=== PATIENT | male | born 1945 | race Asian ===

== ENCOUNTER 2022-09-06 16:25 | Inpatient (IN) | payer BC, OTHER ==
[~2022-09-06] VITALS: Ht 167.6 cm; Wt 68.0 kg
[2022-09-06 16:41] VITALS: BP 122/74
--- NOTE | 2022-09-06 17:10 | NUR ---
@[id number] RN CALLED PT IN BED TEN CAME IN FROM [facility] RA SATING 82% PT IS ON NRM SATING 95%. [facility] STATED PT TESTED POS. FOR COVID TODAY AND WAS DESATURATING. PT HAS NO SIGNS OF DISTRESS PLACED ON 5L GREEN HIGH FLOW BUBBLER. PT IS SATING 94%.
--- NOTE | 2022-09-06 17:10 | NUR ---
@[id number] RT CALLED ER TO LET DR KNOW ABG RESULTS ARE INPUTED.
[2022-09-06 17:14] LABS: BASOPHILS % (AUTO) 0.5 % (0.0-2.0); LYMPHOCYTES # (AUTO) 0.3 K/uL (2.0-11.5); LYMPHOCYTES % (AUTO) 8.6 % (20.5-51.1); MEAN CORPUSCULAR HEMOGLOBIN 32 pg (27-31); MEAN CORPUSCULAR HGB CONC 34 g/dL (33-37); MEAN CORPUSCULAR VOLUME 94.2 fL (80-94); MONOCYTES # (AUTO) 0.2 K/uL (0.8-1.0); MONOCYTES % (AUTO) 6.9 % (1.7-9.3); NEUTROPHILS # (AUTO) 2.7 K/uL (1.8-7.7); PLATELET COUNT (AUTO) 85 K/uL (140-450); RED BLOOD CELL COUNT(AUTO) 4.35 MIL/uL (4.20-6.10); RED CELL DISTRIBUTION WIDTH 12.7 % (11.6-13.7); WHITE BLOOD COUNT (AUTO) 3.2 K/uL (4.8-10.8)
--- NOTE | 2022-09-06 17:31 | NUR ---
C/O SOB, SATTING AT 81% RA IN PCP OFFICE, PER EMS PT TESTED POSITIVE FOR COVID TODAY, PLACED ON NRB 10L, ON 95%. DENIES ANY FEVERS, RUNNY NOSE, BLS CLEAR NKA PMH: HTN
[2022-09-06 17:55] LABS: ALBUMIN 3.9 g/dL (3.4-5.0); ANION GAP 16.1 (8-16); ASPARTATE AMINOTRANSFERASE 30 U/L (15-37); CARBON DIOXIDE 23.8 mmol/L (21-32); CHLORIDE 102 mmol/L (98-107); CREATININE 1.5 mg/dL (0.6-1.3); GLUCOSE 132 mg/dL (74-106); POTASSIUM 3.9 mmol/L (3.5-5.1); SODIUM SERUM 138 mmol/L (136-145); TOTAL BILIRUBIN 0.6 mg/dL (0.0-1.0); UREA NITROGEN, BLOOD 19 mg/dL (7-18)
[2022-09-06] MEDS ORDERED: ATEN50TA2 PO (18:17)
[2022-09-06] MEDS ORDERED: ATOR20TA40 PO (18:17)
[2022-09-06] MEDS ORDERED: TENO25TA PO (18:17)
[2022-09-06] MEDS ORDERED: TELM40TA PO (18:17)
--- NOTE | 2022-09-06 18:54 | NUR ---
PT ATTEMPTED TO WALK, ROOM AIR SATTING 89% AMBULATORY
[2022-09-06] MEDS ORDERED: AZITHROMYCIN 500 MG in DEXTROSE 5% 250 ML IV ONE (19:00)
[2022-09-06] MEDS ORDERED: cefTRIAXone 1,000 MG VIAL ONE (19:04)
--- NOTE | 2022-09-06 19:04 | NUR ---
LAB AT BEDSIDE
[2022-09-06] MEDS ORDERED: DEXAMETHASONE 10 MG/ML VIAL IVP ONE (19:05)
--- NOTE | 2022-09-06 19:20 | NUR ---
Pt report given to ANNABEL RN. Transfer of care at this time.
[2022-09-06] MEDS ORDERED: ACETAMINOPHEN EXTRA STRENGTH 500 MG TAB PO ONE (19:30)
[2022-09-06] MEDS ORDERED: AZITHROMYCIN 500 MG INJ VIAL IV ONE ×2 (19:38→20:46)
--- NOTE | 2022-09-06 19:59 | NUR ---
Novel swab done and given to lab animal technologist.
[2022-09-06] MEDS ORDERED: ALBUTEROL SULFATE/IPRATROPIU 3 ML SOL IH ONE (20:15)
--- NOTE | 2022-09-06 20:40 | NUR ---
Respiratory Therapist at bedside for respiratory intervention.
--- NOTE | 2022-09-06 20:44 | NUR ---
PER ORDER RECEIVED AT 2011, DUONEB ADMINISTERED, PT TOLERATED WELL. PT SATURATIONS MAINTAINED ABOVE 97% POST TX FOR 5 MINS, TITRATED PT FROM 5L N/C TO 4L N/C. WILL CONTINUE TO MONITOR
[2022-09-06] MEDS ORDERED: MAGNESIUM OXIDE 400 MG TAB PO PRN (22:15)
[2022-09-06] MEDS ORDERED: MAG SULF 2000 MG/WATER PREMIX 50 ML IV PRN (22:15)
[2022-09-06] MEDS ORDERED: KCL 20 MEQ/WATER INJ PREMIX 200 ML IV PRN (22:15)
[2022-09-06] MEDS ORDERED: POTASSIUM CHLORIDE 10 MEQ TABER PO PRN (22:15)
[2022-09-06] MEDS ORDERED: HYDROcodone/APAP 5/325 MG 1 TAB TAB PO PRN (22:15)
[2022-09-06] MEDS ORDERED: ONDANSETRON 4 MG/2 ML VIAL IVP PRN (22:15)
[2022-09-06] MEDS ORDERED: MORPHINE SULFATE 4 MG/ML SYR IVP PRN (22:15)
[2022-09-06] MEDS ORDERED: ACETAMINOPHEN 325 MG TAB PO PRN (22:15)
--- NOTE | 2022-09-06 23:02 | NUR ---
Patient appears to be resting comfortably in bed. Vital Signs within normal limits. Respirations even and unlabored. Patient attached to the nurse monitoring and safety measures are in place.
--- NOTE | 2022-09-07 03:36 | NUR ---
Patient appears to be resting comfortably in bed. Vital Signs within normal limits. Respirations even and unlabored. Patient attached to the awake overnight monitor and safety measures are in place.
[2022-09-07 07:01] LABS: HEMATOCRIT 41.3 % (36-52); HEMOGLOBIN 13.9 g/dL (12.0-18.0); LYMPHOCYTES # (AUTO) 0.6 K/uL (2.0-11.5); LYMPHOCYTES % (AUTO) 4.8 % (20.5-51.1); MEAN CORPUSCULAR HEMOGLOBIN 32 pg (27-31); MEAN CORPUSCULAR HGB CONC 34 g/dL (33-37); MEAN CORPUSCULAR VOLUME 94.4 fL (80-94); MONOCYTES # (AUTO) 0.6 K/uL (0.8-1.0); MONOCYTES % (AUTO) 5.2 % (1.7-9.3); NEUTROPHILS # (AUTO) 10.6 K/uL (1.8-7.7); PLATELET COUNT (AUTO) 80 K/uL (140-450); RED BLOOD CELL COUNT(AUTO) 4.38 MIL/uL (4.20-6.10); RED CELL DISTRIBUTION WIDTH 12.9 % (11.6-13.7); WHITE BLOOD COUNT (AUTO) 11.8 K/uL (4.8-10.8)
[2022-09-07 07:12] LABS: ALBUMIN 3.6 g/dL (3.4-5.0); ANION GAP 17.7 (8-16); ASPARTATE AMINOTRANSFERASE 33 U/L (15-37); CARBON DIOXIDE 24.7 mmol/L (21-32); CHLORIDE 101 mmol/L (98-107); CREATININE 1.5 mg/dL (0.6-1.3); GLUCOSE 150 mg/dL (74-106); MAGNESIUM 1.6 mg/dL (1.8-2.4); POTASSIUM 4.4 mmol/L (3.5-5.1); SODIUM SERUM 139 mmol/L (136-145); TOTAL BILIRUBIN 0.7 mg/dL (0.0-1.0); UREA NITROGEN, BLOOD 21 mg/dL (7-18)
--- NOTE | 2022-09-07 07:13 | NUR ---
PT RECEIVED, CARE ASSUMED. PT A/OX4. LANGUAGE BARRIER NOTED. V/S NOTED. RESP EVEN AND UNLABORED. ERIKA HEARD TO UPPER, GIAN LOBES. WILL CONTINUE TO MONITOR
--- NOTE | 2022-09-07 07:14 | NUR ---
Pt report given to Skyler TURNER. Transfer of care at this time.
[2022-09-07] MEDS ORDERED: TELMISARTAN PO SCH (09:50)
[2022-09-07] MEDS ORDERED: MAG SULF 2000 MG/WATER PREMIX 50 ML IV PRN (09:55)
[2022-09-07] MEDS ORDERED: remdesivir COMMUNICATION ORDER 1 EA MISC MC PRN (09:55)
[2022-09-07 10:28] LABS: ALBUMIN 3.6 g/dL (3.4-5.0); BILIRUBIN,DIRECT 0.2 mg/dL (0.0-0.3); TOTAL BILIRUBIN 0.7 mg/dL (0.0-1.0)
[2022-09-07] MEDS: DEXAMETHASONE 4 MG/ML VIAL IVP SCH (10:39)
[2022-09-07] MEDS: ATORVASTATIN 20 MG TAB PO SCH (10:39)
[2022-09-07] MEDS: LOSARTAN 50 MG TAB PO SCH (10:39)
[2022-09-07] MEDS: atenoloL 50 MG TAB PO SCH (10:39)
[2022-09-07] MEDS ORDERED: remdesivir CLINICAL MONITORING 1 EA MISC MC PRN (11:00)
[2022-09-07] MEDS ORDERED: REMDESIVIR. 200 MG in NACL 0.9% 100 ML IV SCH (11:00)
--- NOTE | 2022-09-07 11:00 | NUR ---
REMEDSIVIR STARTED AT 11OO. WILL MONITOR FOR ADVIRSE REACTIONS
--- NOTE | 2022-09-07 11:18 | NUR ---
PT UNABLE TO COUGH SECRETIONS OUT. SATURATION ON 10L BUBBLE, 93%. AFTER NTS, BREATHSOUNDS IMPROVED AND SATURATION WAS 95%. WILL CONTINUE TO MONITOR.
--- NOTE | 2022-09-07 11:32 | NUR ---
PT LAYING IN BED MORE COMFORTABLE. RT AT BED SIDE. NOTED V/S WILL CONTINUE TO MONITOR
--- NOTE | 2022-09-07 15:59 | NUR ---
PATIENT HAS BEEN SCREENED AND CATEGORIZED MODERATE NUTRITION RISK. PATIENT WILL BE SEEN WITHIN 3-5 DAYS OF ADMISSION. REVIEWED BY KAI MARROQUIN RD
[2022-09-07] MEDS ORDERED: cefTRIAXone 1,000 MG VIAL ONE (18:35)
[2022-09-07] MEDS ORDERED: AZITHROMYCIN 500 MG INJ VIAL IV ONE (19:37)
--- NOTE | 2022-09-07 19:41 | NUR ---
Provided suction for patient.
--- NOTE | 2022-09-07 19:43 | NUR ---
Assisted patient to restroom.
[2022-09-07] MEDS: AZITHROMYCIN 500 MG in DEXTROSE 5% 250 ML IV SCH (19:50)
--- NOTE | 2022-09-07 20:13 | NUR ---
WRITTEN REPORT RECEIVED -LEESA, PCR PENDING, +COVID, PB LIST, AND MED REC CHECKED.
--- NOTE | 2022-09-07 21:34 | NUR ---
Patient will be admitted to care of Dr. Hermosillo. Admited to telemetry. Will go to room 113. Belongings list completed. Report to Sawyer TURNER.
--- NOTE | 2022-09-07 21:39 | NUR ---
RECEIVED TELE REPORT FROM RN APV FOR THIS PT. ROOM READY.
[2022-09-07 22:00] VITALS: BP 128/78
--- NOTE | 2022-09-07 22:08 | NUR ---
PT ARRIVED ON UNIT AT 2155 VIA GURNEY FROM ED. PT ARRIVED IN STABLE CONDITION.
[2022-09-08 06:38] LABS: BASOPHILS % (AUTO) 0.1 % (0.0-2.0); HEMATOCRIT 41.1 % (36-52); LYMPHOCYTES # (AUTO) 0.6 K/uL (2.0-11.5); LYMPHOCYTES % (AUTO) 4.7 % (20.5-51.1); MEAN CORPUSCULAR HEMOGLOBIN 32 pg (27-31); MEAN CORPUSCULAR HGB CONC 34 g/dL (33-37); MEAN CORPUSCULAR VOLUME 94.1 fL (80-94); MONOCYTES # (AUTO) 0.7 K/uL (0.8-1.0); MONOCYTES % (AUTO) 5.4 % (1.7-9.3); NEUTROPHILS % (AUTO) 89.8 % (42.2-75.2); PLATELET COUNT (AUTO) 75 K/uL (140-450); RED BLOOD CELL COUNT(AUTO) 4.37 MIL/uL (4.20-6.10); RED CELL DISTRIBUTION WIDTH 13.1 % (11.6-13.7); WHITE BLOOD COUNT (AUTO) 12.2 K/uL (4.8-10.8)
[2022-09-08 07:00] LABS: ALBUMIN 3.3 g/dL (3.4-5.0); ANION GAP 8.9 (8-16); ASPARTATE AMINOTRANSFERASE 60 U/L (15-37); CARBON DIOXIDE 28.4 mmol/L (21-32); CHLORIDE 103 mmol/L (98-107); CREATININE 1.1 mg/dL (0.6-1.3); GLUCOSE 128 mg/dL (74-106); MAGNESIUM 2.2 mg/dL (1.8-2.4); POTASSIUM 4.3 mmol/L (3.5-5.1); SODIUM SERUM 136 mmol/L (136-145); TOTAL BILIRUBIN 0.8 mg/dL (0.0-1.0); UREA NITROGEN, BLOOD 22 mg/dL (7-18)
[2022-09-08 07:01] LABS: ALBUMIN 3.2 g/dL (3.4-5.0); BILIRUBIN,DIRECT 0.2 mg/dL (0.0-0.3); TOTAL BILIRUBIN 0.8 mg/dL (0.0-1.0)
--- NOTE | 2022-09-08 07:20 | NUR ---
ASSUMED CONTINUITY OF CARE. NO SIGNS AND SYMPTOMS OF ACUTE DISTRESS NOTED. INITIAL ASSESSMENT DONE. DROPLET PRECAUTION APPLIED. WILL MONITOR FREQUENTLY.
[2022-09-08 08:00] VITALS: BP 146/83
[2022-09-08] MEDS: ATORVASTATIN 20 MG TAB PO SCH (08:45)
[2022-09-08] MEDS: atenoloL 50 MG TAB PO SCH (08:45)
[2022-09-08] MEDS: LOSARTAN 50 MG TAB PO SCH (08:45)
[2022-09-08] MEDS: DEXAMETHASONE 4 MG/ML VIAL IVP SCH (09:28)
--- NOTE | 2022-09-08 09:29 | NUR ---
TEXTED DR. KIRKPATRICK REGARDING HOLDING OF HEPARIN 500 UNITS SUB-Q DUE TO LOW PLT 75 .
[2022-09-08 12:00] VITALS: BP 125/83
--- NOTE | 2022-09-08 12:00 | NUR ---
VITALS SIGN STABLE. NO C/O PAIN. WILL CONTINUE TO MONITOR.
[2022-09-08] MEDS: REMDESIVIR. 100 MG in NACL 0.9% 100 ML IV SCH (12:09)
[2022-09-08 16:00] VITALS: BP 132/80
--- NOTE | 2022-09-08 16:15 | NUR ---
IV ON RIGHT HAND GAUGE #20 LEAKED AND D/C. INSERTED NEW IV ACCESS ON RIGHT FOREARM GAUGE #22. TOLERATED WELL.
[2022-09-08] MEDS: AZITHROMYCIN 500 MG in DEXTROSE 5% 250 ML IV SCH (18:26)
--- NOTE | 2022-09-08 19:29 | NUR ---
ENDORSED TO MAG SHIFT NURSE. IN STABLE CONDITION. IVF INFUSING WELL.
--- NOTE | 2022-09-08 19:45 | NUR ---
ASSUMED CARE AT THIS TIME. PT SPEAKS NAURUAN ONLY. REPORTED TO BE ALERT AND ORIENTED X2 WITH CONFUSION. PT ABLE TO AMBULATE. ON ROOM AIR. ACTIVE BOWEL SOUNDS. RIGHT FOREARM 22 GAUGE NS TKO. PT CONNECT TO TELE. NO COMPLAINTS AT THIS TIME.
[2022-09-08 20:00] VITALS: BP 132/80
[2022-09-09] VITALS: BP 130/85
--- NOTE | 2022-09-09 | NUR ---
PM MEDS GIVEN. DENIES C/O PAIN.
[2022-09-09 04:00] VITALS: BP 124/73
[2022-09-09 06:53] LABS: BASOPHILS % (AUTO) 0.1 % (0.0-2.0); HEMATOCRIT 39.8 % (36-52); HEMOGLOBIN 13.4 g/dL (12.0-18.0); LYMPHOCYTES # (AUTO) 0.6 K/uL (2.0-11.5); LYMPHOCYTES % (AUTO) 4.1 % (20.5-51.1); MEAN CORPUSCULAR HEMOGLOBIN 32 pg (27-31); MEAN CORPUSCULAR HGB CONC 34 g/dL (33-37); MEAN CORPUSCULAR VOLUME 94.5 fL (80-94); MONOCYTES # (AUTO) 0.9 K/uL (0.8-1.0); MONOCYTES % (AUTO) 5.6 % (1.7-9.3); NEUTROPHILS # (AUTO) 14.1 K/uL (1.8-7.7); NEUTROPHILS % (AUTO) 90.2 % (42.2-75.2); PLATELET COUNT (AUTO) 85 K/uL (140-450); RED BLOOD CELL COUNT(AUTO) 4.21 MIL/uL (4.20-6.10); RED CELL DISTRIBUTION WIDTH 12.9 % (11.6-13.7); WHITE BLOOD COUNT (AUTO) 15.7 K/uL (4.8-10.8)
--- NOTE | 2022-09-09 07:05 | NUR ---
RECEIVED REPORT FROM TAKER DOWN NURSE VAN FOR CONTINUITY OF CARE. PT SI STABLE AND RESTING IN BED. NO SIGNS OF DISTRESS OR LABORED BREATHING. ALL SAFETY MEASURES IN PLACE. WILL CONTINUE TO MONITOR.
--- NOTE | 2022-09-09 07:21 | NUR ---
REPORT GIVEN TO AM LORA BATRES.
[2022-09-09 07:38] LABS: BILIRUBIN,DIRECT 0.1 mg/dL (0.0-0.3); TOTAL BILIRUBIN 0.6 mg/dL (0.0-1.0)
[2022-09-09 08:00] VITALS: BP 127/73
[2022-09-09 08:02] LABS: ANION GAP 13.8 (8-16); ASPARTATE AMINOTRANSFERASE 50 U/L (15-37); CARBON DIOXIDE 25.6 mmol/L (21-32); CHLORIDE 104 mmol/L (98-107); CREATININE 1.2 mg/dL (0.6-1.3); GLUCOSE 131 mg/dL (74-106); MAGNESIUM 2.3 mg/dL (1.8-2.4); POTASSIUM 4.4 mmol/L (3.5-5.1); SODIUM SERUM 139 mmol/L (136-145); TOTAL BILIRUBIN 0.6 mg/dL (0.0-1.0); UREA NITROGEN, BLOOD 36 mg/dL (7-18)
[2022-09-09] MEDS: ATORVASTATIN 20 MG TAB PO SCH (09:00)
[2022-09-09] MEDS: atenoloL 50 MG TAB PO SCH (09:00)
[2022-09-09] MEDS: DEXAMETHASONE 4 MG/ML VIAL IVP SCH (09:00)
[2022-09-09] MEDS: LOSARTAN 50 MG TAB PO SCH (09:00)
[2022-09-09] MEDS: REMDESIVIR. 100 MG in NACL 0.9% 100 ML IV SCH (11:44)
[2022-09-09 12:00] VITALS: BP 132/76
[2022-09-09 16:00] VITALS: BP 143/83
[2022-09-09 17:30] LABS: ALBUMIN 2.9 g/dL (3.4-5.0); BILIRUBIN,DIRECT 0.1 mg/dL (0.0-0.3); TOTAL BILIRUBIN 0.6 mg/dL (0.0-1.0)
--- NOTE | 2022-09-09 19:05 | NUR ---
ENDORSED PT TO FRIT MAKER NURSE BRITTANI FOR CONTINUITY OF CARE. PT IS STABLE AND RESTING IN BED.
[2022-09-09] MEDS: AZITHROMYCIN 500 MG in DEXTROSE 5% 250 ML IV SCH (19:26)
--- NOTE | 2022-09-09 19:30 | NUR ---
RECEIVED FROM DAY RN FOR CONTINUITY OF CARE. PT AWAKE, ALERT AND ORIENTED X 4, INDONESIAN SPEAKING. ON 2L O2 VIA NC, SATING AT 94%. NO COMPLAINS OF PAIN AND RESPIRATORY DISTRESS. SKIN WARM, DRY AND INTACT. ALL PRECAUTIONS IN PLACE. CALL LIGHT WITHIN REACH. WILL CONTINUE TO MONITOR.
[2022-09-09 20:00] VITALS: BP 137/78
--- NOTE | 2022-09-09 20:16 | NUR ---
HEPARIN SUBQ HELD DUE TO LOW PLATELET.
[2022-09-10] VITALS: BP 135/77
--- NOTE | 2022-09-10 00:19 | NUR ---
PT ASLEEP IN BED. VISIBLE CHEST RISE AND FALL NOTED. BREATHING EQUAL AND UNLABORED. ALL PRECAUTIONS IN PLACE. CALL LIGHT WITHIN REACH. WILL CONTINUE TO MONITOR.
[2022-09-10 04:00] VITALS: BP 135/77
--- NOTE | 2022-09-10 07:05 | NUR ---
PT IS STABLE. NO ACUTE EVENTS THROUGHOUT THE NIGHT.ALL NEEDS ATTENDED. NO S/SX OF DISTRESS NOTED.ALL PRECAUTIONS IN PLACE. CALL LIGHT WITHIN REACH. WILL ENDORSE TO DAY SHIFT RN.
[2022-09-10 07:17] LABS: HEMATOCRIT 38.4 % (36-52); HEMOGLOBIN 12.9 g/dL (12.0-18.0); LYMPHOCYTES # (AUTO) 0.6 K/uL (2.0-11.5); LYMPHOCYTES % (AUTO) 4.2 % (20.5-51.1); MEAN CORPUSCULAR HEMOGLOBIN 32 pg (27-31); MEAN CORPUSCULAR HGB CONC 34 g/dL (33-37); MEAN CORPUSCULAR VOLUME 94.1 fL (80-94); NEUTROPHILS # (AUTO) 12.7 K/uL (1.8-7.7); NEUTROPHILS % (AUTO) 88.8 % (42.2-75.2); PLATELET COUNT (AUTO) 99 K/uL (140-450); RED BLOOD CELL COUNT(AUTO) 4.08 MIL/uL (4.20-6.10); RED CELL DISTRIBUTION WIDTH 12.8 % (11.6-13.7); WHITE BLOOD COUNT (AUTO) 14.3 K/uL (4.8-10.8)
--- NOTE | 2022-09-10 07:20 | NUR ---
RECEIVED REPORT FROM URBAN DESIGNER NURSE BRITTANI FOR CONTINUITY OF CARE. PT SI STABLE AND RESTING IN BED. NO SIGNS OF DISTRESS OR LABORED BREATHING. ALL SAFETY MEASURES IN PLACE. WILL CONTINUE TO MONITOR.
[2022-09-10 07:46] LABS: ALBUMIN 2.9 g/dL (3.4-5.0); ANION GAP 12.1 (8-16); ASPARTATE AMINOTRANSFERASE 46 U/L (15-37); CARBON DIOXIDE 27.1 mmol/L (21-32); CHLORIDE 103 mmol/L (98-107); CREATININE 1.2 mg/dL (0.6-1.3); GLUCOSE 135 mg/dL (74-106); MAGNESIUM 2.3 mg/dL (1.8-2.4); POTASSIUM 4.2 mmol/L (3.5-5.1); SODIUM SERUM 138 mmol/L (136-145); TOTAL BILIRUBIN 0.6 mg/dL (0.0-1.0); UREA NITROGEN, BLOOD 43 mg/dL (7-18)
[2022-09-10 08:00] VITALS: BP 145/74
[2022-09-10 08:10] LABS: BILIRUBIN,DIRECT 0.1 mg/dL (0.0-0.3); TOTAL BILIRUBIN 0.6 mg/dL (0.0-1.0)
[2022-09-10] MEDS: ATORVASTATIN 20 MG TAB PO SCH (09:13)
[2022-09-10] MEDS: LOSARTAN 50 MG TAB PO SCH (09:13)
[2022-09-10] MEDS: atenoloL 50 MG TAB PO SCH (09:14)
[2022-09-10] MEDS: DEXAMETHASONE 4 MG/ML VIAL IVP SCH (09:14)
[2022-09-10] MEDS: REMDESIVIR. 100 MG in NACL 0.9% 100 ML IV SCH (11:02)
[2022-09-10 12:00] VITALS: BP 137/84
[2022-09-10] MEDS ORDERED: DEC4 PO (15:04)
[2022-09-10] MEDS ORDERED: APIX2.5 PO (15:07)
[2022-09-10 16:00] VITALS: BP 151/86
[2022-09-10 16:17] VITALS: BP 137/84
== END 2022-09-10 17:22 | disposition home or self-care (01) | DRG 871 ==
LOC: MED 16:25 → MTU 22:19
PROVIDERS: ADMIT Hospitalist; ATTEND Hospitalist
PROC: XW033E5 Introduction of Remdesivir Anti-infective into Peripheral Vein, Percutaneous Approach, New Technology Group 5 (ICD-10-PCS; principal; 2022-09-08)
DX: A41.9 Sepsis, unspecified organism (principal); J12.82 Pneumonia due to coronavirus disease 2019; U07.1 COVID-19; J96.01 Acute respiratory failure with hypoxia; B19.10 Unspecified viral hepatitis B without hepatic coma; E87.20 Acidosis, unspecified; E78.5 Hyperlipidemia, unspecified; K74.60 Unspecified cirrhosis of liver
CPT/HCPCS: 36415; 36600; 71045; 80053; 80076; 82803; 83605; 83735; 83880; 84484; 85025; 85379; 86140; 87040; 87635-QW; 93005; 94640; 96365; 96375; 99291; J0456; J0696; J1100; J1644; J7060; Q0092